=== PATIENT | female | born 1950 | race Caucasian/White ===

== ENCOUNTER 2018-12-31 10:36 | Inpatient (IN) ==
[2018-12-31 12:04] LABS: Hematocrit 34.5 % (37.0-47.0); Hemoglobin 11.1 gm/dL (12.5-16.0); Mean Cell Volume 97.7 fl (78-100); Mean Corpuscular Hemoglobin 31.4 pg (27-31); Mean Corpuscular Hgb Conc 32.2 g/dl (32-36); Mean Platelet Volume 10.8 fl (8-12.5); Neutrophil # 9.7 K/mm3 (1.3-6.0); Neutrophil % 77.5 % (42-75.0); Platelet Count 247 K/mm3 (150-450); Red Blood Count 3.53 M/mm3 (4.2-5.4); Red Cell Distribution Width 12.5 % (11.5-14.0); White Blood Count 12.5 K/mm3 (4.0-10.5)
[2018-12-31 12:23] LABS: Albumin * 3.1 gm/dl (3.4-5.0); BUN/Creatinine Ratio 13.6 (9.0-21.6); Bilirubin, Total 0.6 mg/dL (0.0-1.1); Ca. Corrected For Albumin 9.4 mg/dL (8.4-10.2); Total Protein 6.6 gm/dL (6.2-8.2)
[2018-12-31] MEDS ORDERED: ALBUTEROL SULFATE 2.5 MG/0.5 ML VIAL.NEB IH PRN (15:36)
[2018-12-31] MEDS ORDERED: HYDROmorphone HCL 1 MG/ML DISP.SYRIN IV PRN ×2 (15:38→20:14)
[2018-12-31] MEDS ORDERED: HYDROmorphone HCL 2 MG/ML VIAL IM ONE (16:57)
[2018-12-31] MEDS: ALBUTEROL SULFATE 2.5 MG/0.5 ML VIAL.NEB IH SCH (18:20)
[2018-12-31] MEDS ORDERED: HYDROmorphone HCL 1 MG/ML DISP.SYRIN IV ONE (18:30)
[2018-12-31] MEDS ORDERED: BISACODYL 5 MG TABLET.DR PO ONE (19:13)
[2018-12-31] MEDS ORDERED: SODIUM PHOSPHATE,MONO-DIBASIC 1 ENEMA BTL RC ONE (19:14)
--- NOTE | 2018-12-31 19:36 | CONS ---
[facility] - General Date of Service: 12/31/18 Source: patient, family, RN/, RN notes reviewed, old records - History of Present Illness Initial Comments: The patient went to [place] yesterday for a breast cancer follow-up. That went well. On the way home she ate 2 cheeseburgers. She came home and laid down. About an hour later she started having relatively sudden onset right upper quadrant pain that wraps through to her back. She felt bloated. It was hard to take a deep breath. It hurts to cough or go over bumps. She was seen in the emergency room last night. A urinalysis was ordered. The urine was concentrated with a few white blood cells but no leukocyte esterase and so no culture was done. She was told to follow-up with her primary care physician today and that she probably needed an ultrasound and HIDA. She was seen today by , who discussed the case with me. The patient was placed in observation status, and an abdominal x-ray and ultrasound were performed. HIDA scan has been ordered however the radionuclide will need to be gotten tomorrow. She has received Dilaudid with some relief in her discomfort but is still very uncomfortable. "They have always told me I have gallbladder problems. There is a kink in the gallbladder on ultrasound". She has never had a HIDA scan before. She has never had pain of the severe nature before. She recently had bilateral knee replacements in October. She is also noticed some difficulty with urination with increased nocturia and difficulty going. She has voided twice here. Timing/Duration: 24 hours Severity: severe Modifying Factors - (Worsens): Reports: movement Modifying Factors - (Improves): Reports: immobilization, other - Pain medication Associated Symptoms: other - Hard to take a deep breath Allergies/Adverse Reactions: Allergies amoxicillin trihydrate [From Amoxil] Allergy (Severe, Verified 12/31/18 16:36) throat swelling theophylline anhydrous [From Roni-Dur] Allergy (Severe, Verified 12/31/18 16:36) throat swelling niacin Adverse Reaction (Mild, Verified 12/31/18 16:36) Itching Home Medications: Home Medications Medication Instructions Recorded Last Taken Acetaminophen [Tylenol] 650 mg PO Q6H PRN 01/30/13 12/23/17 Albuterol Sulfate [Albuterol 2.5 mg IH QID PRN 01/30/13 12/23/17 Sulfate 0.5%] albuterol sulfate HFA 90 2 puff IH QID PRN #8.5 g 10/11/18 Unknown mcg/actuation aerosol inhaler tamoxifen 20 mg tablet 20 mg PO HS 10/23/18 Unknown Atorvastatin Calcium 40 mg PO DAILY 12/31/18 Unknown FLUoxetine HCL [Fluoxetine HCl] 60 mg PO HS 12/31/18 Unknown Losartan Potassium [Cozaar] 50 mg PO DAILY 12/31/18 Unknown Promethazine HCl 12.5 mg RC Q4H PRN #12 supp.rect 12/31/18 Unknown Umeclidinium Brm/Vilanterol Tr 1 ea INHALATION HS 12/31/18 Unknown [Anoro Ellipta 62.5-25 Mcg INH] Procedures Administration of [id number], combined (12/07/12) Arthroscopy, shoulder (02/03/13) COLONOSCOPY (01/05/10) Contrast arthrogram (03/04/15) Injection of anesthetic into peripheral nerve for analgesia (08/08/04) Injection of locally acting therapeutic substance into other soft tissue (08/08/04) Injection or infusion of other therapeutic or prophylactic substance (08/08/04) Other arthrotomy, shoulder (02/03/13) Other local excision or destruction of lesion of joint, shoulder (02/03/13) Other partial ostectomy, scapula, clavicle, and thorax [ribs and sternum] (02/03/13) Other peripheral nerve or ganglion decompression or lysis of adhesions (11/11/04) Plain Radiography of Left Shoulder using Other Contrast (03/04/15) Rotator cuff repair (02/03/13) Medications - Medications Current Medications: Current Medications Albuterol Sulfate (Albuterol Sulfate 2.5 Mg/0.5ml) 2.5 mg IH QIDRT CLARISA Stop: 01/30/19 19:01 Last Admin: 12/31/18 18:20 Dose: 2.5 mg Documented by: Hydromorphone HCl (Dilaudid) 1 mg IV Q2H PRN PRN Reason: Pain Stop: 01/30/19 15:39 Last Admin: 12/31/18 16:34 Dose: 1 mg Documented by: Review of Systems - Review of Systems Generalized/Overall Review: Absent: Chills, Fever EENTM: Absent: No Symptoms Reported Respiratory: Present: Other - She has baseline COPD with some dyspnea on exertion. Is harder now for her to take a deep breath due to the discomfort. Cardiac: Present: Other - She has never had DVT. Absent: Chest Pain, Edema, Palpitations Abdominal: Present: Other - She has had a little more difficulty with her bowels since her knee surgery. She is taken stool softeners. She generally goes at least once a day, but did not go to the bathroom yesterday. Genitourinary: Present: Frequency, Other - She has had nocturia up to 5 times some nights. It is slow down a little bit. She always wears a pad in case of incontinence. She has never had flank discomfort. Absent: Burning Musculoskeletal: Present: Other - She is doing well with her new knees. She does have some shoulder and back discomfort chronically Neurological: Present: No Symptoms Reported Skin: Present: Bruising Physical Examination - Exam Vital Signs: Vital Signs - Last Taken Temp 37.0 C 12/31/18 18:15 Pulse 65 12/31/18 18:30 Resp 20 12/31/18 18:30 BP 141/46 12/31/18 18:15 Pulse Ox 95 12/31/18 18:20 O2 Oxygen Delivery Method Room Air Comprehensive Narative: 12/31/18 19:23 She appears very uncomfortable sitting with the head of the bed elevated and her tilted to the left side. She did receive some relief with IV Dilaudid. Constitutional: Present: Alert, Oriented x3, Cooperative, Well developed, Well n ourished, Moderate distress ENT Exam: Present: normal ENT inspection Eye Exam: bilateral eye: normal inspection Neck: Present: full range of motion, normal inspection Breasts: Present: Other - Status post right mastectomy Respiratory: Present: lungs clear, other - She takes very short of breath due to the discomfort, however breathe more deeply after Dilaudid Cardiovascular/Chest: Present: regular rate, rhythm, other - Very distant heart sounds no gross murmur Peripheral Pulses: radial (R): 4+, radial (L): 4+ Abdomen: Present: other - Very distended and tympanitic to percussion. No percussion tenderness. Tender over the entire right abdomen and epigastrium in the area of tympany. /Rectal: Present: Exam deferred Extremity: Present: normal range of motion, no pedal edema, no calf tenderness Skin Exam: Present: normal color Neurologic: Present: admitting counselor II-XII nml as tested, no motor/sensory deficits Appearance: Present: appropriate appearance, appropriate insight, no memory impairment Eye contact: Present: cooperative, good eye contact, normal speech Thoughts: Present: normal thought pattern - Results and Findings: Narrative: Cholecystitis is a possibility. Her white blood cell count is elevated, however all of her liver function studies are normal and the ultrasound is equivocal. She does have a very large amount of gas and stool which may be contributing to the discomfort. She does not give a history of heartburn or indigestion so an ulcer would be less likely. A pamphlet on gallbladder disease and gallbladder surgery as well as a pamphlet on the colon were reviewed with her and given to her. Explained how a HIDA scan works and what it would or would not show. Also explained that gaseous distention could cause some of the discomfort and so we will order a Dulcolax tablet as well as a Fleet enema. Will review the HIDA scan tomorrow. I did explain what would be involved with laparoscopic cholecystectomy if that would be necessary. I will continue to follow the patient Lab/Microbiology results last 24 hrs: Abnormal/Pending Laboratory Last 24 HRS 12/31/18 12/31/18 11:45 11:45 WBC 12.5 H RBC 3.53 L Hgb 11.1 L Hct 34.5 L MCH 31.4 H Immature Gran # (Auto) 0.05 H Neutrophils % 77.5 H Lymphocytes % 11.2 L Monocytes % 10.1 H Neutrophils # 9.7 H Lymphocytes # 1.40 L Monocytes # 1.3 H Anion Gap 14.0 H Est GFR (Non-Af Amer) 52 L D ALT 13 L Albumin 3.1 L The gallbladder ultrasound is somewhat suboptimal due to the large amount of gas and patient discomfort. There may be debris in the gallbladder. It has a fold. The wall is not markedly thickened there is no pericholecystic fluid or ductal dilatation but again the exam is limited. The abdominal x-ray shows a large amount of gas and stool. There is a calcified structure over the right lower quadrant however this is well out of the area of the gallbladder and the patient has had an appendectomy - Assessments/Findings (1) Right upper quadrant abdominal pain Problem: Acute
--- NOTE | 2018-12-31 20:04 | HP ---
Chief Complaint - Chief Complaint Date of Service: 12/31/18 Time of Service: 13:30 Chief Complaint: Abdominal pain, biliary colic, constipation History of Present Illness: Mira Leary is a 68-year-old female who presents with right upper quadrant abdominal pain and with nausea and vomiting. She has not been able to eat or drink anything today and presented to the emergency room. Evaluation there is highly suspect for biliary colic. KUB and upright showed a large amount of stool and gas present. The ultrasound was suboptimal because much was obscured by the gas. However there appears to be sludge in the gallbladder and it may be enlarged some. She has had ondansetron for nausea which has been effective. She is also had IV Dilaudid twice and it has not been effective in relieving her pain. Dr. Ochoa has seen her in consultation and ordered a laxative and an enema to try to get her bowels to clean out. Ordinarily she does not tolerate pain medicine well but so far has tolerated the Dilaudid well even though is not been very effective in relieving her pain. She had a positive Lauren's on both exam and had ultrasound. A nuclear study of the gallbladder has been ordered for tomorrow morning. Medical History (Updated 12/31/18 @ 19:35 by Solange Ochoa MD) Right upper quadrant abdominal pain (Acute) Concern for acute cholecystitis Breast cancer COPD (chronic obstructive pulmonary disease) Depression Fibromyalgia Hyperlipidemia Hypertension Lumbar herniated disc Mitral valve prolapse TERRANCE (obstructive sleep apnea) Renal failure Surgical History: Surgical History (Updated 12/31/18 @ 19:35 by Solange Ochoa MD) History of knee surgery History of mastectomy delivery delivered H/O breast biopsy H/O colonoscopy 10 or more at [facility], last one 01-05-2010 dr mike pederson H/O laminectomy l4-l5 History of PFTs mild obst lung defect History of appendectomy History of shoulder surgery History of tonsillectomy S/P [id number] Family History: Family History (Updated 01/28/18 @ 15:27 by Nghia Freed LPN) Brother , 1st brother something wrong with lungs, other brother bladder ca No problems noted. Sister Non-Hodgkin lymphoma Father CVA (cerebral vascular accident) Myocardial infarction Mother COPD (chronic obstructive pulmonary disease) Diabetes Hypertension Social History: Patient Lives/Resources Home Utilized Occupation retired Preferred Language Polish Do you have any tenriism or Yes: Orthodoxy cultural preference? Smoking Status Current some day smoker Have you smoked in the past 12 Yes months Do you dip or chew tobacco No Abuse History No History of abuse Psych History No pertinent hx (Last Updated 12/31/18 @ 15:59 by Sanjuana Galvez MD) No Social History Section defined Review Of Systems (GEN) - Review of Systems Generalized/Overall Review: Present: Malaise, Fatigue EENTM: Present: No Symptoms Reported Respiratory: Present: No Symptoms Reported Cardiac: Present: No Symptoms Reported Abdominal: Present: Nausea, Vomiting, Abdominal Pain, Constipation, Other - Abdominal bloating and distention Genitourinary: Present: No Symptoms Reported Musculoskeletal: Present: No Symptoms Reported Neurological: Present: No Symptoms Reported Skin: Present: No Symptoms Reported Endocrine: Present: No Symptoms Reported Misc: All systems neg except as marked - She has a history of breast cancer that has been treated and apparently is doing well with that. She is taking tamoxifen for that. Immunizations: IMMUNIZATION HX Immunizations Up to Date Yes History of Influenza Vaccine No Hx Pneumococcal Vaccination Yes Allergies/Adverse Reactions: Allergies Allergy/AdvReac Type Severity Reaction Status Date / Time amoxicillin trihydrate Allergy Severe throat Verified 12/31/18 16:36 [From Amoxil] swelling theophylline anhydrous Allergy Severe throat Verified 12/31/18 16:36 [From Roni-Dur] swelling niacin AdvReac Mild Itching Verified 12/31/18 16:36 Home Medications: HOME MEDICATIONS Acetaminophen [Tylenol] 650 mg PO Q6H PRN 01/30/13 [Last Taken 12/23/17] Albuterol Sulfate [Albuterol Sulfate 0.5%] 2.5 mg IH QID PRN 01/30/13 [Last Taken 12/23/17] albuterol sulfate HFA 90 mcg/actuation aerosol inhaler 2 puff IH QID PRN #8.5 g 10/11/18 [Last Taken Unknown] tamoxifen 20 mg tablet 20 mg PO HS 10/23/18 [Last Taken Unknown] Atorvastatin Calcium 40 mg PO DAILY 12/31/18 [Last Taken Unknown] FLUoxetine HCL [Fluoxetine HCl] 60 mg PO HS 12/31/18 [Last Taken Unknown] Losartan Potassium [Cozaar] 50 mg PO DAILY 12/31/18 [Last Taken Unknown] Promethazine HCl 12.5 mg RC Q4H PRN #12 supp.rect 12/31/18 [Last Taken Unknown] Umeclidinium Brm/Vilanterol Tr [Anoro Ellipta 62.5-25 Mcg INH] 1 ea INHALATION HS 12/31/18 [Last Taken Unknown] Exam - Exam Vital Signs: Vital Signs - Last Taken Temp 37.0 C 12/31/18 18:15 Pulse 65 12/31/18 18:30 Resp 20 12/31/18 18:30 BP 141/46 12/31/18 18:15 Pulse Ox 95 12/31/18 18:20 Constitutional: Present: Alert, Oriented x3, Cooperative, Well developed, Well nourished, Moderate distress, Elderly, Obese ENT Exam: Present: normal ENT inspection, hearing grossly normal, pharynx normal, TMs normal Eye Exam: bilateral eye: normal inspection, PERRL, EOMI Neck: Present: non-tender, full range of motion, supple, normal inspection, trachea midline Back Exam: Present: normal inspection, no CVA tenderness, no vertebral tenderness Breasts: Present: Exam deferred Respiratory: Present: chest non-tender, lungs clear, normal breath sounds, no respiratory distress, no accessory muscle use Cardiovascular/Chest: Present: normal peripheral pulses, regular rate, rhythm, no chest tenderness, no edema, no gallop, no JVD, no murmur, no rub Peripheral Pulses: carotid (R): 2+, carotid (L): 2+, radial (R): 2+, radial (L): 2+ Abdomen: Present: Normal bowel sounds, no hepatospenomegaly, no masses, obese, guarding, positive Lauren sign, distended. Absent: rigidity, rebound tenderness, CVA tenderness, suprapubic tenderness /Rectal: Present: Exam deferred, External genitalia normal Extremity: Present: normal range of motion, non-tender, normal inspection, no pedal edema, no calf tenderness, normal capillary refill Skin Exam: Present: normal color, warm/dry, no cyanosis Lymphatic: Present: no adenopathy Neurologic: Present: drawer upfitter II-XII nml as tested, normal cerebellar test, no motor/sensory deficits, alert, normal mood/affect, oriented x 3, abnormal cerebellar tests Appearance: Present: appropriate appearance, appropriate insight, neat, no memory impairment Eye contact: Present: cooperative, good eye contact, normal speech, avoids eye contact Thoughts: Present: normal thought pattern, no apparent hallucination Diagnostic Studies: Abnormal Lab Results 12/31/18 12/31/18 Range/Units 11:45 11:45 WBC 12.5 H (4.0-10.5) K/mm3 RBC 3.53 L (4.2-5.4) M/mm3 Hgb 11.1 L (12.5-16.0) gm/dL Hct 34.5 L (37.0-47.0) % MCH 31.4 H (27-31) pg Immature Gran # (Auto) 0.05 H (0.000-0.0310) K/mm3 Neutrophils % 77.5 H (42-75.0) % Lymphocytes % 11.2 L (20-51) % Monocytes % 10.1 H (0.0-9) % Neutrophils # 9.7 H (1.3-6.0) K/mm3 Lymphocytes # 1.40 L (1.5-3.5) k/mm3 Monocytes # 1.3 H (0.0-1.0) k/mm3 Anion Gap 14.0 H (6.8-13.8) mmol/L Est GFR (Non-Af Amer) 52 L D (60-130) mL/min ALT 13 L (19-67) U/L Albumin 3.1 L (3.4-5.0) gm/dl Laboratory Results WBC 12.5 K/mm3 (4.0-10.5) H 12/31/18 11:45 RBC 3.53 M/mm3 (4.2-5.4) L 12/31/18 11:45 Hgb 11.1 gm/dL (12.5-16.0) L 12/31/18 11:45 Hct 34.5 % (37.0-47.0) L 12/31/18 11:45 MCV 97.7 fl (78-100) 12/31/18 11:45 MCH 31.4 pg (27-31) H 12/31/18 11:45 MCHC 32.2 g/dl (32-36) 12/31/18 11:45 RDW 12.5 % (11.5-14.0) 12/31/18 11:45 Plt Count 247 K/mm3 (150-450) 12/31/18 11:45 MPV 10.8 fl (8-12.5) 12/31/18 11:45 Immature Gran % (Auto) 0.40 % (0.001-0.429) 12/31/18 11:45 Immature Gran # (Auto) 0.05 K/mm3 (0.000-0.0310) H 12/31/18 11:45 77.5 % (42-75.0) H 12/31/18 11:45 11.2 % (20-51) L 12/31/18 11:45 10.1 % (0.0-9) H 12/31/18 11:45 0.2 % (0.0-3.0) 12/31/18 11:45 0.6 % (0.0-1.0) 12/31/18 11:45 Nucleated RBC % 0.0 k/mm3 (0-1) 12/31/18 11:45 9.7 K/mm3 (1.3-6.0) H 12/31/18 11:45 1.40 k/mm3 (1.5-3.5) L 12/31/18 11:45 1.3 k/mm3 (0.0-1.0) H 12/31/18 11:45 0.0 k/mm3 (0.0-0.7) 12/31/18 11:45 Absolute Basophils 0.1 k/mm3 (0.0-0.1) 12/31/18 11:45 Sodium 142 mmol/L (132-142) 12/31/18 11:45 142 mmol/L (130-142) 12/31/18 11:45 Potassium 4.0 mmol/L (3.4-4.6) 12/31/18 11:45 Chloride 104 mmol/L (97-106) 12/31/18 11:45 Carbon Dioxide 28.0 mmol/L (24-32.6) 12/31/18 11:45 14.0 mmol/L (6.8-13.8) H 12/31/18 11:45 BUN 15 mg/dL (3-23) 12/31/18 11:45 1.10 mg/dL (0.4-1.4) 12/31/18 11:45 Est GFR (Non-Af Amer) 52 mL/min (60-130) L D 12/31/18 11:45 13.6 (9.0-21.6) 12/31/18 11:45 107 mg/dL (70-110) 12/31/18 11:45 Calcium 9.0 mg/dL (7.9-10.9) 12/31/18 11:45 Calcium Adj for Albumin 9.4 mg/dL (8.4-10.2) 12/31/18 11:45 0.6 mg/dL (0.0-1.1) 12/31/18 11:45 AST 12 U/L (0-48) 12/31/18 11:45 ALT 13 U/L (19-67) L 12/31/18 11:45 74 U/L (50-170) 12/31/18 11:45 6.6 gm/dL (6.2-8.2) 12/31/18 11:45 3.1 gm/dl (3.4-5.0) L 12/31/18 11:45 Assessment/Plan - Narrative Narrative: 1. Allow clear liquids until midnight then n.p.o. 2. Withhold most of her oral medications until tomorrow 3. Hepatobiliary nuclear scan scheduled for tomorrow 4. Increase Dilaudid dosing 5. Continue ondansetron for nausea 6. Dulcolax tabs to tonight and then fleets enema tomorrow morning. 7. Dr. Ochoa has already consulted. - Assessment/Plan (1) Biliary colic Problem: Acute (2) Ductal carcinoma in situ of right breast Problem: Acute (3) Hypertension Problem: Chronic Qualifiers: Hypertension type: essential hypertension Qualified Code(s): I10 - Essential (primary) hypertension (4) COPD (chronic obstructive pulmonary disease) Problem: Chronic Qualifiers: COPD type: unspecified COPD Qualified Code(s): J44.9 - Chronic obstructive pulmonary disease, unspecified (5) Right upper quadrant abdominal pain Problem: Acute
[2018-12-31] MEDS ORDERED: SODIUM PHOSPHATE,MONO-DIBASIC 1 ENEMA BTL RC SCH (20:30)
[2018-12-31] MEDS ORDERED: BISACODYL 5 MG TABLET.DR PO SCH (20:30)
[2018-12-31 20:32] LABS: Urine Bilirubin 1 mg/dl (NEGATIVE); Urine Blood Negative /ul (NEGATIVE); Urine Ketone 5 mg/dL (NEGATIVE); Urine Nitrite Negative (NEGATIVE); Urine Protein 15 mg/dL (NEGATIVE); Urine Specific Gravity >=1.030 SP.GR. (1.005-1.010); Urine Urobilinogen Normal (NORMAL); Urine pH 5.5 pH (5.0-7.0)
[2018-12-31 21:31] LABS: Urine Appearance Clear (CLEAR); Urine Color Yellow
[2018-12-31 21:32] LABS: Urine Bacteria TRACE; Urine Mucus Few - 1+; Urine RBC 0-5 /hpf (0-5); Urine WBC None Seen /hpf (0-5)
[2018-12-31] MEDS: FLUoxetine HCL 20 MG CAPSULE PO SCH (21:42)
[2018-12-31] MEDS: ONDANSETRON HCL/PF 2 MG/ML VIAL IV PRN (22:28)
[2018-12-31] MEDS: NORMAL SALINE 1,000 ML IV PRN (22:32)
[2019-01-01] MEDS: HYDROmorphone HCL 2 MG/ML VIAL IV PRN ×4 (04:06→22:07)
[2019-01-01] MEDS: ONDANSETRON HCL/PF 2 MG/ML VIAL IV PRN ×2 (04:10→11:32)
[2019-01-01 05:47] LABS: Hematocrit 35.6 % (37.0-47.0); Mean Cell Volume 99.2 fl (78-100); Mean Corpuscular Hemoglobin 30.6 pg (27-31); Mean Corpuscular Hgb Conc 30.9 g/dl (32-36); Mean Platelet Volume 11.2 fl (8-12.5); Neutrophil # 11.6 K/mm3 (1.3-6.0); Neutrophil % 82.9 % (42-75.0); Platelet Count 228 K/mm3 (150-450); Red Blood Count 3.59 M/mm3 (4.2-5.4); Red Cell Distribution Width 12.4 % (11.5-14.0); White Blood Count 13.9 K/mm3 (4.0-10.5)
[2019-01-01 05:49] LABS: Albumin * 2.9 gm/dl (3.4-5.0); Anion Gap 15.2 mmol/L (6.8-13.8); BUN/Creatinine Ratio 12.8 (9.0-21.6); Bilirubin, Total 0.6 mg/dL (0.0-1.1); Ca. Corrected For Albumin 9.1 mg/dL (8.4-10.2); Calcium * 8.5 mg/dL (7.9-10.9); Carbon Dioxide 23.5 mmol/L (24-32.6); Potassium 3.7 mmol/L (3.4-4.6); Total Protein 6.7 gm/dL (6.2-8.2)
[2019-01-01] MEDS: ALBUTEROL SULFATE 2.5 MG/0.5 ML VIAL.NEB IH SCH ×4 (06:09→17:59)
[2019-01-01] MEDS ORDERED: ALBUTEROL SULFATE 2.5 MG/0.5 ML VIAL.NEB IH PRN (06:45)
[2019-01-01] MEDS: ACETAMINOPHEN 325 MG TABLET PO PRN ×2 (07:27→21:22)
[2019-01-01] MEDS: NORMAL SALINE 1,000 ML IV PRN (07:30)
--- NOTE | 2019-01-01 09:23 | PN ---
Subjective - Date and Time Seen Date: 01/01/19 Time: 09:18 Subjective Narrative: patient still having abdominal pain. they doubled on her dilaudid dose. may need ketoralac. had low grade fever today. WBC is higher. will start IV antibiotics . Objective - Review of Systems Generalized/Overall Review: Reports: Fever. Denies: Chills EENTM: Denies: Blurred Vision Respiratory: Denies: Cough, Shortness of Breath Cardiac: Denies: Chest Pain, Edema, Palpitations Abdominal: Reports: Nausea, Abdominal Pain. Denies: Vomiting Genitourinary Symptoms: Denies: Urgency, Frequency Musculoskeletal Complaints: Denies: Joint Pain, Back Pain Neurological: Denies: Headache Skin: Denies: Lesions, Rash Endocrine: Denies: Intolerance to Cold, Intolerance to Heat - Vitals Vitals: Last Vital Signs Temp 37.8 C 01/01/19 07:15 Pulse 81 01/01/19 07:15 Resp 16 01/01/19 07:15 BP 131/54 01/01/19 07:15 Pulse Ox 92 L 01/01/19 07:15 - Abnormal Lab Findings Abnormal Lab Findings: Abnormal Lab Results 12/31/18 12/31/18 12/31/18 Range/Units 11:45 11:45 20:23 WBC 12.5 H (4.0-10.5) K/mm3 RBC 3.53 L (4.2-5.4) M/mm3 Hgb 11.1 L (12.5-16.0) gm/dL Hct 34.5 L (37.0-47.0) % MCH 31.4 H (27-31) pg MCHC (32-36) g/dl Immature Gran # (Auto) 0.05 H (0.000-0.0310) K/mm3 Neutrophils % 77.5 H (42-75.0) % Lymphocytes % 11.2 L (20-51) % Monocytes % 10.1 H (0.0-9) % Neutrophils # 9.7 H (1.3-6.0) K/mm3 Lymphocytes # 1.40 L (1.5-3.5) k/mm3 Monocytes # 1.3 H (0.0-1.0) k/mm3 Carbon Dioxide (24-32.6) mmol/L Anion Gap 14.0 H (6.8-13.8) mmol/L Est GFR (Non-Af Amer) 52 L D (60-130) mL/min Random Glucose (70-110) mg/dL ALT 13 L (19-67) U/L Albumin 3.1 L (3.4-5.0) gm/dl Lipase (73-393) U/L Urine Protein 15 H (NEGATIVE) mg/dL Urine Bilirubin 1 H (NEGATIVE) mg/dl Urine Mucus Few - 1+ H (NONE) 01/01/19 01/01/19 Range/Units 05:10 05:10 WBC 13.9 H (4.0-10.5) K/mm3 RBC 3.59 L (4.2-5.4) M/mm3 Hgb 11.0 L (12.5-16.0) gm/dL Hct 35.6 L (37.0-47.0) % MCH (27-31) pg MCHC 30.9 L (32-36) g/dl Immature Gran # (Auto) 0.04 H (0.000-0.0310) K/mm3 Neutrophils % 82.9 H (42-75.0) % Lymphocytes % 6.7 L (20-51) % Monocytes % 9.7 H (0.0-9) % Neutrophils # 11.6 H (1.3-6.0) K/mm3 Lymphocytes # 0.93 L (1.5-3.5) k/mm3 Monocytes # 1.4 H (0.0-1.0) k/mm3 Carbon Dioxide 23.5 L (24-32.6) mmol/L Anion Gap 15.2 H (6.8-13.8) mmol/L Est GFR (Non-Af Amer) 53 L (60-130) mL/min Random Glucose 127 H (70-110) mg/dL ALT 14 L (19-67) U/L Albumin 2.9 L (3.4-5.0) gm/dl Lipase 71 L (73-393) U/L Urine Protein (NEGATIVE) mg/dL Urine Bilirubin (NEGATIVE) mg/dl Urine Mucus (NONE) - Exam Constitutional: Present: Alert, Cooperative ENT Exam: Present: hearing grossly normal Neck: Present: supple Respiratory: Present: normal breath sounds, No rales, No wheezing Cardiovascular/Chest: Present: regular rate, rhythm, no JVD, no murmur Abdomen: Present: tender, distended, hypoactive Extremity: Present: no pedal edema, no calf tenderness Assessment/Plan - Problems/Diagnosis (1) Biliary colic Problem: Acute Narrative: await HIDA scan. ADDENDUM: HIDA scan was normal- Will order CTS of the abdomen/pelvis with contrast GI vs . await results (2) Nausea and vomiting Problem: Acute Qualifiers: Vomiting type: unspecified Vomiting Intractability: non-intractable Qualified Code(s): R11.2 - Nausea with vomiting, unspecified (3) Ductal carcinoma in situ of right breast Problem: Acute (4) Anxiety and depression Problem: Chronic (5) COPD (chronic obstructive pulmonary disease) Problem: Chronic Qualifiers: COPD type: unspecified COPD Qualified Code(s): J44.9 - Chronic obstructive pulmonary disease, unspecified (6) Chronic renal failure, stage 3 (moderate) Problem: Chronic (7) Fibromyalgia Problem: Chronic (8) Hyperlipidemia Problem: Chronic Qualifiers: Hyperlipidemia type: pure hypercholesterolemia Qualified Code(s): E78.00 - Pure hypercholesterolemia, unspecified (9) Hypertension Problem: Chronic Qualifiers: Hypertension type: essential hypertension Qualified Code(s): I10 - Essential (primary) hypertension (10) Obstructive sleep apnea syndrome Problem: Chronic
[2019-01-01] MEDS ORDERED: CIPROFLOXACIN IN 5 % DEXTROSE 400 MG/200 ML BAG IV SCH (09:30)
[2019-01-01] MEDS: LOSARTAN POTASSIUM 50 MG TABLET PO SCH (10:05)
[2019-01-01] MEDS: TAMOXIFEN CITRATE 10 MG TABLET PO SCH (10:05)
[2019-01-01] MEDS ORDERED: metroNIDAZOLE/SODIUM CHLORIDE 500 MG/100 ML BAG IV SCH (10:30)
--- NOTE | 2019-01-01 10:48 | PN ---
Dictated Progress Note - Date and Time Seen: Date: 01/01/19 Time: 10:47 - Progress Note Narrative: Vital Signs - Last Taken Temp 37.8 C 01/01/19 07:15 Pulse 81 01/01/19 10:05 Resp 16 01/01/19 07:15 BP 131/54 01/01/19 10:05 Pulse Ox 92 L 01/01/19 07:15 Abnormal/Pending Laboratory Last 24 HRS 01/01/19 01/01/19 12/31/18 05:10 05:10 20:23 WBC 13.9 H RBC 3.59 L Hgb 11.0 L Hct 35.6 L MCH MCHC 30.9 L Immature Gran # (Auto) 0.04 H Neutrophils % 82.9 H Lymphocytes % 6.7 L Monocytes % 9.7 H Neutrophils # 11.6 H Lymphocytes # 0.93 L Monocytes # 1.4 H Carbon Dioxide 23.5 L Anion Gap 15.2 H Est GFR (Non-Af Amer) 53 L Random Glucose 127 H ALT 14 L Albumin 2.9 L Lipase 71 L Urine Protein 15 H Urine Bilirubin 1 H Urine Mucus Few - 1+ H 12/31/18 12/31/18 11:45 11:45 WBC 12.5 H RBC 3.53 L Hgb 11.1 L Hct 34.5 L MCH 31.4 H MCHC Immature Gran # (Auto) 0.05 H Neutrophils % 77.5 H Lymphocytes % 11.2 L Monocytes % 10.1 H Neutrophils # 9.7 H Lymphocytes # 1.40 L Monocytes # 1.3 H Carbon Dioxide Anion Gap 14.0 H Est GFR (Non-Af Amer) 52 L D Random Glucose ALT 13 L Albumin 3.1 L Lipase Urine Protein Urine Bilirubin Urine Mucus Still with pain. No results from enema/dulcolax. HIDA scan visualized GB appropriatley, so not cholecystitis. WBC elevated. Recommend CT abdomen and pelvis. Discussed with Dr Weber.
[2019-01-01 11:26] LABS: Urine Bilirubin 1 mg/dl (NEGATIVE); Urine Blood 25 /ul (NEGATIVE); Urine Ketone Negative (NEGATIVE); Urine Nitrite Negative (NEGATIVE); Urine Protein 15 mg/dL (NEGATIVE); Urine Specific Gravity >=1.030 SP.GR. (1.005-1.010); Urine Urobilinogen Normal (NORMAL); Urine pH 5.5 pH (5.0-7.0)
[2019-01-01] MEDS ORDERED: DIATRIZOATE MEGLUMINE, SODIUM 30 ML BTL PO ONE (11:34)
[2019-01-01 11:35] LABS: Urine Appearance Clear (CLEAR); Urine Bacteria 1+; Urine Color Dark Yellow; Urine RBC None Seen /hpf (0-5); Urine WBC None Seen /hpf (0-5)
--- NOTE | 2019-01-01 14:28 | PN ---
Dictated Progress Note - Date and Time Seen: Date: 01/01/19 Time: 14:26 - Progress Note Narrative: Vital Signs - Last Taken Temp 36.9 C 01/01/19 10:15 Pulse 71 01/01/19 11:05 Resp 14 01/01/19 11:05 BP 109/52 01/01/19 10:15 Pulse Ox 91 L 01/01/19 10:55 Abnormal/Pending Laboratory Last 24 HRS 01/01/19 01/01/19 01/01/19 11:16 05:10 05:10 WBC 13.9 H RBC 3.59 L Hgb 11.0 L Hct 35.6 L MCHC 30.9 L Immature Gran # (Auto) 0.04 H Neutrophils % 82.9 H Lymphocytes % 6.7 L Monocytes % 9.7 H Neutrophils # 11.6 H Lymphocytes # 0.93 L Monocytes # 1.4 H Carbon Dioxide 23.5 L Anion Gap 15.2 H Est GFR (Non-Af Amer) 53 L Random Glucose 127 H ALT 14 L Albumin 2.9 L Lipase 71 L Urine Protein 15 H Urine Blood 25 H Urine Bilirubin 1 H Ur Epithelial Cells 5-10 H Urine Bacteria 1+ H Urine Mucus 12/31/18 20:23 WBC RBC Hgb Hct MCHC Immature Gran # (Auto) Neutrophils % Lymphocytes % Monocytes % Neutrophils # Lymphocytes # Monocytes # Carbon Dioxide Anion Gap Est GFR (Non-Af Amer) Random Glucose ALT Albumin Lipase Urine Protein 15 H Urine Blood Urine Bilirubin 1 H Ur Epithelial Cells Urine Bacteria Urine Mucus Few - 1+ H CT shows findings in RLL that would account for patient pain and symptoms. GB appears normal and not other acute abdominal findings. Will defer management to Dr Weber.
[2019-01-01] MEDS: ENOXAPARIN SODIUM 80 MG/0.8 ML DISP.SYRIN SC SCH (15:35)
--- NOTE | 2019-01-01 16:24 | PN ---
Progess Note - Interim Date: 01/01/19 Time: 16:17 Narrative: 01/01/19 16:17 Her CTS shows P.E. with pulmonary infarct vs pneumonia . rest of intrabdominal findings not significant per surgery. will do a a dedicated CTS with angiogram 24 hours from this procedure to rule other involved areas as the CTS of the abdomen only caught the lower part of her RLI segental/subsegmental P.E. . Therapeutic lovenox started. will changer antibiotics to Levaquin. watch out for hemodynamic instability tonight.
[2019-01-01] MEDS: LEVOFLOXACIN IN DEXTROSE 5 % 500 MG/100 ML BAG IV SCH (17:33)
[2019-01-01] MEDS: FLUoxetine HCL 20 MG CAPSULE PO SCH (21:21)
[2019-01-02] MEDS: NORMAL SALINE 1,000 ML IV PRN ×2 (00:41→16:40)
[2019-01-02] MEDS: ENOXAPARIN SODIUM 80 MG/0.8 ML DISP.SYRIN SC SCH ×2 (02:38→16:44)
[2019-01-02] MEDS: HYDROmorphone HCL 2 MG/ML VIAL IV PRN ×3 (02:44→17:55)
[2019-01-02] MEDS: ALBUTEROL SULFATE 2.5 MG/0.5 ML VIAL.NEB IH SCH ×4 (06:00→18:01)
[2019-01-02 06:03] LABS: Hematocrit 29.6 % (37.0-47.0); Hemoglobin 9.2 gm/dL (12.5-16.0); Mean Corpuscular Hemoglobin 30.8 pg (27-31); Mean Corpuscular Hgb Conc 31.1 g/dl (32-36); Neutrophil # 9.1 K/mm3 (1.3-6.0); Neutrophil % 78.9 % (42-75.0); Platelet Count 222 K/mm3 (150-450); Red Blood Count 2.99 M/mm3 (4.2-5.4); Red Cell Distribution Width 12.3 % (11.5-14.0); White Blood Count 11.6 K/mm3 (4.0-10.5)
[2019-01-02 06:15] LABS: Anion Gap 10.5 mmol/L (6.8-13.8); BUN/Creatinine Ratio 9.3 (9.0-21.6); Calcium * 8.2 mg/dL (7.9-10.9); Carbon Dioxide 25.1 mmol/L (24-32.6); Estimated Creat Clear 38.9; Potassium 3.6 mmol/L (3.4-4.6)
--- NOTE | 2019-01-02 08:21 | PN ---
Progess Note - Interim Date: 01/02/19 Time: 08:17 Narrative: 01/02/19 08:17 She says her pain is better this morning. had 2 doses of Lovenox. For CTA this afternoon. if no other siginificant clot burden, will change her to DOAG/NOAG Xarelto 15 mg PO BID x 21 days then 20 mg PO QDaily or Eliquis 10 mg PO BID x 7 days the 5 mg PO BID. She may need to be on it for lifetime due her h/o breast cancer. Her risk for her P.E. were her h/o breast cancer, tamoxifen medicine, and less likely b/l knee replacement on 10/28/2018 and finished taking her ASA for DVT prophylaxis on 12/09/18. 01/02/19 16:35 Her pain is worst again (8-9/10) and did not respond to oral tramadol. IV dilaudid was given. will admit her to acute status for uncontrolled pain.
[2019-01-02] MEDS: LOSARTAN POTASSIUM 50 MG TABLET PO SCH (09:33)
[2019-01-02] MEDS: TAMOXIFEN CITRATE 10 MG TABLET PO SCH (09:33)
[2019-01-02] MEDS: traMADol HCL 50 MG TABLET PO PRN (09:37)
--- NOTE | 2019-01-02 15:51 | ANES ---
Anesthesia Procedure Note Procedure Note: ANESTHESIA PROCEDURE NOTE Date of procedure: 01/02/2019. Time of procedure: 1230. Performed by: Tacos Archibald CRNA [place] Operator: None . Preprocedure diagnosis: Difficult IV access. Post procedure diagnosis: Same. Procedure: IV start Indications: Need for large-bore IV for radiologic studies.. Findings: An 18-gauge Angiocath IV was started in patient's left antecubital fossa EBL: Minimal. Fluids: N/A. Specimen: N/A. Post procedure condition: The patient tolerated the procedure well. No complications were noted. Thank you for this consultation Tacos Archibald CRNA
[2019-01-02] MEDS: LEVOFLOXACIN IN DEXTROSE 5 % 500 MG/100 ML BAG IV SCH (17:53)
[2019-01-02] MEDS: FLUoxetine HCL 20 MG CAPSULE PO SCH (20:10)
[2019-01-02] MEDS: RIVAROXABAN 15 MG TABLET PO SCH (20:11)
[2019-01-03] MEDS: ACETAMINOPHEN 325 MG TABLET PO PRN ×2 (02:42→17:14)
[2019-01-03] MEDS: ALBUTEROL SULFATE 2.5 MG/0.5 ML VIAL.NEB IH SCH ×4 (06:07→18:09)
--- NOTE | 2019-01-03 06:51 | PN ---
Subjective - Date and Time Seen Date: 01/02/19 Time: 16:00 Subjective Narrative: (This is late entry. I saw the patient yesterday , 01/02/19, 2 times and thought I did a progress note but only did the progress interim note.) The patient continued to have pain that was not responding to oral pain medication ( tramadol, she cannot tolerate vicodin/percoset, cannot take NSAID due to her renal function) and she was changed to acute status. Her CT angiogram showed additional blood clot to her right lung. Objective - Review of Systems Generalized/Overall Review: Reports: Fever. Denies: Chills EENTM: Denies: Blurred Vision Respiratory: Reports: Cough, Shortness of Breath Cardiac: Reports: Chest Pain. Denies: Edema, Palpitations Abdominal: Reports: Abdominal Pain. Denies: Nausea, Vomiting Genitourinary Symptoms: Denies: Urgency, Frequency Musculoskeletal Complaints: Reports: Joint Pain, Back Pain Neurological: Denies: Headache, Seizure Skin: Denies: Lesions, Rash Endocrine: Denies: Intolerance to Cold, Intolerance to Heat Misc: All systems neg except as marked - Vitals Vitals: Last Vital Signs Temp 36.4 C 01/03/19 06:14 Pulse 66 01/03/19 06:16 Resp 20 01/03/19 06:16 BP 128/67 01/03/19 06:14 Pulse Ox 100 01/03/19 06:14 - Exam Constitutional: Present: Alert, Oriented x3, Cooperative, Mild distress ENT Exam: Present: hearing grossly normal. Absent: nasal congestion Neck: Present: supple. Absent: lymphadenopathy (R), lymphadenopathy (L) Respiratory: Present: decreased breath sounds, No rales, No wheezing, other - decreased expansion Cardiovascular/Chest: Present: regular rate, rhythm, no gallop, no JVD Abdomen: Present: Normal bowel sounds, soft, nondistended, tender - abdomoinal muscles Extremity: Present: no calf tenderness, pedal edema Assessment/Plan - Problems/Diagnosis (1) Pulmonary embolism and infarction Problem: Acute Narrative: on Xarelto, O2, breathing treatments, incentive spirometry (2) Pneumonia Problem: Acute Qualifiers: Pneumonia type: due to unspecified organism Laterality: right Lung location: lower lobe of lung Qualified Code(s): J18.1 - Lobar pneumonia, unspecified organism Narrative: on levaquin (3) Nausea and vomiting Problem: Resolved Qualifiers: Vomiting type: unspecified Vomiting Intractability: non-intractable Qualified Code(s): R11.2 - Nausea with vomiting, unspecified (4) Ductal carcinoma in situ of right breast Problem: Acute (5) Anxiety and depression Problem: Chronic (6) COPD (chronic obstructive pulmonary disease) Problem: Chronic Qualifiers: COPD type: unspecified COPD Qualified Code(s): J44.9 - Chronic obstructive pulmonary disease, unspecified (7) Chronic renal failure, stage 3 (moderate) Problem: Chronic (8) Fibromyalgia Problem: Chronic (9) Hyperlipidemia Problem: Chronic Qualifiers: Hyperlipidemia type: pure hypercholesterolemia Qualified Code(s): E78.00 - Pure hypercholesterolemia, unspecified (10) Hypertension Problem: Chronic Qualifiers: Hypertension type: essential hypertension Qualified Code(s): I10 - Essential (primary) hypertension (11) Obstructive sleep apnea syndrome Problem: Chronic (12) Pain aggravated by breathing Problem: Acute Narrative: pleurisy. alsoaccommpanied by abdominal pain when she coughs- likely due to her abdominal muscle pain
[2019-01-03 08:02] LABS: Hematocrit 30.6 % (37.0-47.0); Hemoglobin 9.6 gm/dL (12.5-16.0); Mean Cell Volume 97.1 fl (78-100); Mean Corpuscular Hemoglobin 30.5 pg (27-31); Mean Corpuscular Hgb Conc 31.4 g/dl (32-36); Neutrophil # 5.8 K/mm3 (1.3-6.0); Neutrophil % 80.1 % (42-75.0); Platelet Count 266 K/mm3 (150-450); Red Blood Count 3.15 M/mm3 (4.2-5.4); Red Cell Distribution Width 12.4 % (11.5-14.0); White Blood Count 7.3 K/mm3 (4.0-10.5)
[2019-01-03 08:24] LABS: Anion Gap 13.4 mmol/L (6.8-13.8); BUN/Creatinine Ratio 6.7 (9.0-21.6); Calcium * 8.7 mg/dL (7.9-10.9); Carbon Dioxide 24.2 mmol/L (24-32.6); Estimated Creat Clear 39.6; Potassium 3.6 mmol/L (3.4-4.6)
[2019-01-03] MEDS: LOSARTAN POTASSIUM 50 MG TABLET PO SCH (09:18)
[2019-01-03] MEDS: RIVAROXABAN 15 MG TABLET PO SCH ×2 (09:18→20:05)
[2019-01-03] MEDS: TAMOXIFEN CITRATE 10 MG TABLET PO SCH (09:18)
--- NOTE | 2019-01-03 10:05 | PN ---
Subjective - Date and Time Seen Date: 01/03/19 Time: 09:53 Subjective Narrative: Patient's c/o -her back pain is aggravated by deep breathing or coughing and it also affects her abdomen. Objective - Review of Systems Generalized/Overall Review: Denies: Chills, Fever EENTM: Denies: Blurred Vision Respiratory: Reports: Cough, Shortness of Breath. Denies: Wheezing Cardiac: Reports: Chest Pain, Edema. Denies: Palpitations Abdominal: Reports: Abdominal Pain. Denies: Nausea, Vomiting Genitourinary Symptoms: Denies: Urgency, Frequency Musculoskeletal Complaints: Reports: Joint Pain Neurological: Denies: Headache, Seizure Skin: Denies: Lesions, Rash Endocrine: Denies: Intolerance to Cold, Intolerance to Heat Misc: All systems neg except as marked - Vitals Vitals: Last Vital Signs Temp 37.3 C 01/03/19 09:17 Pulse 64 01/03/19 09:18 Resp 16 01/03/19 09:17 BP 131/62 01/03/19 09:18 Pulse Ox 95 01/03/19 09:17 - Abnormal Lab Findings Abnormal Lab Findings: Abnormal Lab Results 01/03/19 01/03/19 Range/Units 07:30 07:30 RBC 3.15 L (4.2-5.4) M/mm3 Hgb 9.6 L (12.5-16.0) gm/dL Hct 30.6 L (37.0-47.0) % MCHC 31.4 L (32-36) g/dl Neutrophils % 80.1 H (42-75.0) % Lymphocytes % 8.1 L (20-51) % Monocytes % 9.1 H (0.0-9) % Lymphocytes # 0.59 L (1.5-3.5) k/mm3 Est GFR (Non-Af Amer) 55 L (60-130) mL/min BUN/Creatinine Ratio 6.7 L (9.0-21.6) Random Glucose 123 H (70-110) mg/dL - Exam Constitutional: Present: Alert, Oriented x3, Cooperative ENT Exam: Present: hearing grossly normal. Absent: nasal congestion Neck: Present: supple. Absent: lymphadenopathy (R), lymphadenopathy (L) Respiratory: Present: decreased breath sounds, wheezing, No rales, No wheezing Cardiovascular/Chest: Present: regular rate, rhythm, no JVD, no murmur Abdomen: Present: Normal bowel sounds, soft, nondistended, tender - slight tender muscles Extremity: Present: no calf tenderness, pedal edema Skin Exam: Present: warm/dry Assessment/Plan Plan Narrative: Will continue with IV antibitoics, anticoagulation and pain control. She cannot take NSAIDS for her pleurisy due to her anticoagulation and partly due to her CRF Stage III.Cannot tolerate Vicodin/Percoset. continue with IV dilaudid and po tramadol PRN. possible discharge in the morning if inflammation subsides and pain is better. - Problems/Diagnosis (1) Pulmonary embolism and infarction Problem: Acute Narrative: on Xarelto (2) Pneumonia Problem: Acute Qualifiers: Pneumonia type: due to unspecified organism Laterality: right Lung location: lower lobe of lung Qualified Code(s): J18.1 - Lobar pneumonia, unspecified organism Narrative: on levaquin (3) Ductal carcinoma in situ of right breast Problem: Chronic Narrative: s/p mastectomy (4) Anxiety and depression Problem: Chronic (5) COPD (chronic obstructive pulmonary disease) Problem: Chronic Qualifiers: COPD type: unspecified COPD Qualified Code(s): J44.9 - Chronic obstructive pulmonary disease, unspecified (6) Chronic renal failure, stage 3 (moderate) Problem: Chronic (7) Fibromyalgia Problem: Chronic (8) Hyperlipidemia Problem: Chronic Qualifiers: Hyperlipidemia type: pure hypercholesterolemia Qualified Code(s): E78.00 - Pure hypercholesterolemia, unspecified (9) Hypertension Problem: Chronic Qualifiers: Hypertension type: essential hypertension Qualified Code(s): I10 - Essential (primary) hypertension (10) Obstructive sleep apnea syndrome Problem: Chronic (11) Pain aggravated by breathing Problem: Acute Narrative: due to pleurisy
[2019-01-03] MEDS: LEVOFLOXACIN IN DEXTROSE 5 % 500 MG/100 ML BAG IV SCH (17:04)
[2019-01-03] MEDS: traMADol HCL 50 MG TABLET PO PRN (17:15)
[2019-01-03] MEDS: FLUoxetine HCL 20 MG CAPSULE PO SCH (20:04)
[2019-01-04] MEDS: ALBUTEROL SULFATE 2.5 MG/0.5 ML VIAL.NEB IH SCH ×2 (06:04→10:12)
[2019-01-04] MEDS: LOSARTAN POTASSIUM 50 MG TABLET PO SCH (08:20)
[2019-01-04] MEDS: RIVAROXABAN 15 MG TABLET PO SCH (08:20)
[2019-01-04] MEDS: TAMOXIFEN CITRATE 10 MG TABLET PO SCH (08:20)
--- NOTE | 2019-01-04 10:54 | DS ---
(1) Pneumonia Problem: Acute Qualifiers: Pneumonia type: due to unspecified organism Laterality: right Lung location: lower lobe of lung Qualified Code(s): J18.1 - Lobar pneumonia, unspecified organism (2) Pulmonary embolism and infarction Problem: Acute Description of Stay: Mira is a 68 yo female that was admitted for RUQ abdominal pain that was severe and initially thought to be biliary in nature. After investigation it was discovered that she had right pulmonary embolism with infarct and pneumonia. She was treated with anticoagulation and antibiotics and gradually pain was improved and controlled with narcotics. Her respiratory status was stable and she was ultimately discharged to home to complete course of antibiotics and remain on anticoagulation. She will follow up with Dr. Weber. Procedures Performed: none Results and Findings: Pending Mircobiology Results 01/01/19 09:47 Blood Blood Culture - Preliminary NO GROWTH AFTER 48 HOURS 01/01/19 09:47 Blood Blood Culture - Preliminary NO GROWTH AFTER 48 HOURS Lab Pending Results 12/31/18 11:45: WBC 12.5 H, RBC 3.53 L, Hgb 11.1 L, Hct 34.5 L, MCV 97.7, MCH 31.4 H, MCHC 32.2, RDW 12.5, Plt Count 247, MPV 10.8, Immature Gran % (Auto) 0.40, Immature Gran # (Auto) 0.05 H, Neutrophils % 77.5 H, Lymphocytes % 11.2 L, Monocytes % 10.1 H, Eosinophils % 0.2, Basophils % 0.6, Nucleated RBC % 0.0, Neutrophils # 9.7 H, Lymphocytes # 1.40 L, Monocytes # 1.3 H, Eosinophils # 0.0, Absolute Basophils 0.1 12/31/18 11:45: Sodium 142, Plasma Sodium 142, Potassium 4.0, Chloride 104, Carbon Dioxide 28.0, Anion Gap 14.0 H, BUN 15, Creatinine 1.10, Est GFR (Non-Af Amer) 52 L D, BUN/Creatinine Ratio 13.6, Random Glucose 107, Calcium 9.0, Calcium Adj for Albumin 9.4, Total Bilirubin 0.6, AST 12, ALT 13 L, Alkaline Phosphatase 74, Total Protein 6.6, Albumin 3.1 L 12/31/18 20:23: Urine Color Yellow, Urine Appearance Clear, Urine pH 5.5, Ur Specific [place] >=1.030, Urine Protein 15 H, Urine Glucose (UA) Negative, Urine Ketones 5, Urine Blood Negative, Urine Nitrate Negative, Urine Bilirubin 1 H, Urine Ictotest Negative, Prot Sulfosalicylic Acd 1+, Urine Urobilinogen Normal, Ur Leukocyte Esterase Negative, Urine RBC 0-5, Urine WBC None seen, Ur Epithelial Cells 0-5, Urine Bacteria Trace, Urine Mucus Few - 1+ H 01/01/19 05:10: Sodium 138, Plasma Sodium 138, Potassium 3.7, Chloride 103, Carbon Dioxide 23.5 L, Anion Gap 15.2 H, BUN 14, Creatinine 1.09, Est GFR (Non- Af Amer) 53 L, BUN/Creatinine Ratio 12.8, Random Glucose 127 H, Calcium 8.5, Calcium Adj for Albumin 9.1, Total Bilirubin 0.6, AST 12, ALT 14 L, Alkaline Phosphatase 78, Total Protein 6.7, Albumin 2.9 L, Lipase 71 L 01/01/19 05:10: WBC 13.9 H, RBC 3.59 L, Hgb 11.0 L, Hct 35.6 L, MCV 99.2, MCH 30.6, MCHC 30.9 L, RDW 12.4, Plt Count 228, MPV 11.2, Immature Gran % (Auto) 0.30, Immature Gran # (Auto) 0.04 H, Neutrophils % 82.9 H, Lymphocytes % 6.7 L, Monocytes % 9.7 H, Eosinophils % 0.0, Basophils % 0.4, Nucleated RBC % 0.0, Neutrophils # 11.6 H, Lymphocytes # 0.93 L, Monocytes # 1.4 H, Eosinophils # 0.0, Absolute Basophils 0.1 01/01/19 11:16: Urine Color Dark yellow, Urine Appearance Clear, Urine pH 5.5, Ur Specific [place] >=1.030, Urine Protein 15 H, Urine Glucose (UA) Negative, Urine Ketones Negative, Urine Blood 25 H, Urine Nitrate Negative, Urine Bilirubin 1 H, Urine Ictotest Negative, Prot Sulfosalicylic Acd Negative, Urine Urobilinogen Normal, Ur Leukocyte Esterase Negative, Urine RBC None seen, Urine WBC None seen, Ur Epithelial Cells 5-10 H, Urine Bacteria 1+ H 01/02/19 05:56: WBC 11.6 H, RBC 2.99 L, Hgb 9.2 L, Hct 29.6 L, MCV 99.0, MCH 30.8, MCHC 31.1 L, RDW 12.3, Plt Count 222, MPV 11.0, Immature Gran % (Auto) 0.40, Immature Gran # (Auto) 0.05 H, Neutrophils % 78.9 H, Lymphocytes % 9.0 L, Monocytes % 11.0 H, Eosinophils % 0.3, Basophils % 0.4, Nucleated RBC % 0.0, Neutrophils # 9.1 H, Lymphocytes # 1.04 L, Monocytes # 1.3 H, Eosinophils # 0.0, Absolute Basophils 0.1 01/02/19 05:56: Sodium 136, Plasma Sodium 136, Potassium 3.6, Chloride 104, Carbon Dioxide 25.1, Anion Gap 10.5, BUN 10, Creatinine 1.07, Est GFR (Non-Af Amer) 54 L, BUN/Creatinine Ratio 9.3, Random Glucose 116 H, Calcium 8.2 01/03/19 07:30: WBC 7.3 D, RBC 3.15 L, Hgb 9.6 L, Hct 30.6 L, MCV 97.1, MCH 30.5, MCHC 31.4 L, RDW 12.4, Plt Count 266, MPV 11.0, Immature Gran % (Auto) 0.30, Immature Gran # (Auto) 0.02, Neutrophils % 80.1 H, Lymphocytes % 8.1 L, M onocytes % 9.1 H, Eosinophils % 1.8, Basophils % 0.6, Nucleated RBC % 0.0, Neutrophils # 5.8, Lymphocytes # 0.59 L, Monocytes # 0.7, Eosinophils # 0.1, Absolute Basophils 0.0 01/03/19 07:30: Sodium 140, Plasma Sodium 140, Potassium 3.6, Chloride 106, Carbon Dioxide 24.2, Anion Gap 13.4, BUN 7, Creatinine 1.05, Est GFR (Non-Af Amer) 55 L, BUN/Creatinine Ratio 6.7 L, Random Glucose 123 H, Calcium 8.7 Discharge Location: Home Disposition: Home self-care Condition: Good Discharge Activity: Activity as tolerated Discharge Diet: Low salt Referrals: Rena Weber MD [Primary Care Provider] - One Week Problem Oriented Discharge Instructions to Patient/Family: Pulmonary Embolism, Community-Acquired Pneumonia, Adult, [id number] Additional Patient Instructions (free text): -Please make TCM appointment unless correction discharge. Thank you! Lilia at extension [phone]. Prescriptions (Any new or edited meds): Levofloxacin [Levaquin] 500 mg PO DAILY #4 tab traMADol HCL [Ultram] 50 mg PO Q6H PRN #60 tab PRN Reason: Pain Rivaroxaban [Xarelto] 15 mg PO BID #42 tab Complete Home Medications List: Complete Home Medication List: Acetaminophen [Tylenol] 650 mg PO Q6H PRN 01/30/13 Albuterol Sulfate [Albuterol Sulfate 2.5 MG/0.5ML] 2.5 mg IH QID PRN 01/30/13 albuterol sulfate HFA 90 mcg/actuation aerosol inhaler 2 puff IH QID PRN #8.5 g 10/11/18 tamoxifen 20 mg tablet 20 mg PO HS 10/23/18 Atorvastatin Calcium 40 mg PO DAILY 12/31/18 FLUoxetine HCL [Fluoxetine HCl] 60 mg PO HS 12/31/18 Losartan Potassium [Cozaar] 50 mg PO DAILY 12/31/18 Umeclidinium Brm/Vilanterol Tr [Anoro Ellipta 62.5-25 Mcg INH] 1 ea INHALATION HS 12/31/18 Levofloxacin [Levaquin] 500 mg PO DAILY #4 tab 01/04/19 Rivaroxaban [Xarelto] 15 mg PO BID #42 tab 01/04/19 traMADol HCL [Ultram] 50 mg PO Q6H PRN #60 tab 01/04/19
[2019-01-04 12:22] VITALS: BP 148/60
== END 2019-01-04 12:25 | disposition home or self-care (01) | DRG 175 ==
LOC: CCFAL → RAD 10:36 → MS 10:36
PROVIDERS: ADMIT Family Medicine; ATTEND Internal Medicine
DX: M79.7 Fibromyalgia; E78.00 Pure hypercholesterolemia, unspecified; F17.210 Nicotine dependence, cigarettes, uncomplicated; J44.9 Chronic obstructive pulmonary disease, unspecified; G47.33 Obstructive sleep apnea (adult) (pediatric); Z96.653 Presence of artificial knee joint, bilateral; I26.99 Other pulmonary embolism without acute cor pulmonale; J18.1 Lobar pneumonia, unspecified organism; D05.11 Intraductal carcinoma in situ of right breast; N18.3 Chronic kidney disease, stage 3 (moderate); R11.2 Nausea with vomiting, unspecified; R09.1 Pleurisy; K80.50 Calculus of bile duct without cholangitis or cholecystitis without obstruction; F41.8 Other specified anxiety disorders; I12.9 Hypertensive chronic kidney disease with stage 1 through stage 4 chronic kidney disease, or unspecified chronic kidney disease
CPT/HCPCS: 36415; 71020; 71046; 71275; 74000; 74018; 74177; 76700; 78226; 80048; 80053; 81001; 82150; 83690; 85025; 87040; 93005; 94640; 94664; 96361; 96365; 96367; 96372; 96374; 96375; 96376; 97110; 97116; 97161; 99283; A9537; G0378; J2405; Q9963; Q9967